=== PATIENT | male | born 1940 | race Native Hawaiian/Other Pacific Islander ===

== ENCOUNTER 2016-07-14 16:48 | Emergency (ER) | payer OTHER, MEDICARE ==
[~2016-07-14] VITALS: Ht 177.8 cm; Wt 75.3 kg
[2016-07-14] MEDS ORDERED: PANT40TA PO (17:11)
[2016-07-14] MEDS ORDERED: LIPITOR40 MG PO (17:12)
[2016-07-14] MEDS ORDERED: ALLO300T23 PO (17:12)
[2016-07-14] MEDS ORDERED: COZAAR100 MG PO (17:12)
[2016-07-14] MEDS ORDERED: ISOSORB DIN30 MG OR (17:13)
[2016-07-14] MEDS ORDERED: CLARITIN10 MG PO (17:15)
[2016-07-14] MEDS ORDERED: ASPIR-8181 MG OR (17:15)
[2016-07-14] MEDS ORDERED: METO50TA63 PO (17:15)
[2016-07-14] MEDS ORDERED: CO Q 1010 MG OR (17:16)
[2016-07-14] MEDS ORDERED: METF500T PO (17:16)
[2016-07-14] MEDS ORDERED: PLAVIX75 MG PO (17:17)
[2016-07-14 17:52] LABS: PLATELET COUNT 205 K/uL (142-355)
[2016-07-14 17:58] LABS: POTASSIUM 3.8 mmol/L (3.6-5.2); SODIUM 132 mmol/L (136-145)
[2016-07-14 20:03] VITALS: BP 130/88; TEMP 97.7
== END 2016-07-14 20:10 | disposition home or self-care (01) ==
LOC: ED 16:48
PROVIDERS: Family Medicine
DX: K21.9 Gastro-esophageal reflux disease without esophagitis (principal); R11.2 Nausea with vomiting, unspecified; R10.13 Epigastric pain; E87.1 Hypo-osmolality and hyponatremia; I45.19 Other right bundle-branch block
CPT/HCPCS: 80053; 81000; 82150; 82550; 83690; 84484; 85027; 93005; 96360; 96361; 96374; 99284; J2405